=== PATIENT | female | born 1985 | race Caucasian/White ===

== ENCOUNTER 2017-04-22 17:30 | Emergency (ER) | payer MEDICAID ==
[~2017-04-22] VITALS: Ht 157.5 cm; Wt 56.8 kg
[~2017-04-22 17:30] MED LIST: LORTAB 5/500 501 TAB PO; MOTRIN 600600 MG/TAB PO; NAPROSYN500 MG PO; NEURONTIN100 MG/CAP PO; NORCO 325 MG-51 TAB PO; PERCOCET 325 MG1 TA2 PO; PRENATAL1 TA1 PO; SENOKOT S 50 MG1 TAB PO
[2017-04-22 17:32] VITALS: TEMP 97
[2017-04-22 19:20] LABS: BASO # 0.1 (0.0-0.2); BASO % 0.7 % (0.0-2.0); EOS # 0.1 (0.0-0.7); GRAN # 6.3 (1.4-6.5); GRAN % 71.6 % (42.2-75.2); HEMATOCRIT 38.8 % (37.0-47.0); LYMPH # 1.8 (1.2-3.4); LYMPH % 20.2 % (20.0-51.0); MEAN CELL VOLUME 81 fl (80.0-100.0); MEAN CORPUSCULAR HEMOGLOBIN 27 pg (27.0-31.0); MEAN CORPUSCULAR HGB CONC 34 g/dl (33.0-37.0); MEAN PLATELET VOLUME 9.2 fl (7.4-10.4); MONO # 0.6 (0.1-0.6); MONO % 6.3 % (1.7-9.3); PLATELET COUNT 292 K/mm3 (130-400); RED BLOOD COUNT 4.81 M/mm3 (4.10-5.30); REDCELL DISTRIBUTION WIDTH-CV 12.8 % (11.5-14.5); WHITE BLOOD COUNT 8.8 K/mm3 (4.8-10.8)
[2017-04-22 19:36] LABS: ADJUSTED CALCIUM 9.1 mg/dL (8.4-10.2); ALANINE AMINOTRANSFERASE 27 U/L (9-52); ALBUMIN 4.4 gm/dL (3.5-5.0); ALKALINE PHOSPHATASE 59 U/L (50-136); ANION GAP 10 mmol/L (7-16); BILIRUBIN,TOTAL 0.5 mg/dL (0.0-1.0); BLOOD UREA NITROGEN 14 mg/dL (7-17); CALCIUM 9.4 mg/dL (8.4-10.2); CARBON DIOXIDE 24 mmol/L (22-30); CHLORIDE 103 mmol/L (98-107); CREATININE, serum 0.84 mg/dL (0.52-1.25); GLUCOSE 99 mg/dL (74-106); POTASSIUM 3.9 mmol/L (3.4-5.0); SODIUM 137 mmol/L (137-145)
[2017-04-22 19:41] LABS: C-REACTIVE PROTEIN < 0.5 mg/dL (0.0-0.9)
[2017-04-22 19:56] LABS: PH 6 (5-8); SQUAMOUS EPITHELIAL None Seen /hpf; URINE APPEARANCE Cloudy; URINE BACTERIA None Seen /hpf; URINE BILIRUBIN Negative (NEGATIVE); URINE BLOOD 3+ (NEGATIVE); URINE COLOR Yellow; URINE GLUCOSE Negative (NEGATIVE); URINE KETONE Trace (NEGATIVE); URINE RBC >50 /hpf; URINE UROBILINOGEN Negative (NEGATIVE); URINE WBC 20-50 /hpf
[2017-04-22] MEDS ORDERED: PYRIDIUM 100MG100 MG PO (20:26)
[2017-04-22] MEDS ORDERED: CEFTIN500 MG PO (20:26)
[2017-04-22 22:11] VITALS: BP 117/78; PULSE 80
== END 2017-04-22 22:14 | disposition home or self-care (01) ==
LOC: COL.ER 17:30
PROVIDERS: Physician Assistant
DX: N30.91 Cystitis, unspecified with hematuria (principal); F32.9 Major depressive disorder, single episode, unspecified; F41.9 Anxiety disorder, unspecified; F43.10 Post-traumatic stress disorder, unspecified
CPT/HCPCS: J0696; J1170; J2550; J3010; J7030

== ENCOUNTER 2017-06-13 16:16 | Emergency (ER) | payer MEDICAID ==
[~2017-06-13] VITALS: Ht 160 cm; Wt 71.8 kg
[~2017-06-13 16:16] MED LIST changes: +CEFTIN500 MG PO; +PYRIDIUM 100MG100 MG PO
[2017-06-13 16:57] LABS: INFLUENZA A NEGATIVE; INFLUENZA B NEGATIVE
[2017-06-13] MEDS ORDERED: DOXYCYCLINE HY100 MG PO (17:31)
[2017-06-13 17:53] VITALS: BP 126/70; PULSE 105; TEMP 99.3
== END 2017-06-13 17:58 | disposition home or self-care (01) ==
LOC: COL.ER 16:16
PROVIDERS: Emergency Medicine
DX: J18.1 Lobar pneumonia, unspecified organism (principal)

== ENCOUNTER → 2017-07-13 | Outpatient (CLI) | payer MEDICAID ==
[~2017-07-13] MED LIST changes: +DOXYCYCLINE HY100 MG PO
== END ==
LOC: COL.RAD 09:12
DX: R05 Cough (principal)

== ENCOUNTER 2019-04-18 14:49 | Emergency (ER) | payer MEDICAID ==
[~2019-04-18] VITALS: Ht 312.4 cm; Wt 69.9 kg
[2019-04-18 14:56] VITALS: BP 126/80; TEMP 98.4
[2019-04-18] MEDS ORDERED: DOXYCYCLINE 10100 MG PO (15:52)
[2019-04-18] MEDS ORDERED: NORCO 325 MG-51 TAB PO (15:52)
[2019-04-18 16:13] VITALS: PULSE 88
== END 2019-04-18 16:13 | disposition home or self-care (01) ==
LOC: COL.ER 14:49
DX: L03.811 Cellulitis of head [any part, except face] (principal); L08.9 Local infection of the skin and subcutaneous tissue, unspecified

== ENCOUNTER 2019-11-16 09:21 | Emergency (ER) | payer MEDICAID ==
[~2019-11-16] VITALS: Ht 157.5 cm; Wt 65.9 kg
[~2019-11-16 09:21] MED LIST changes: +DOXYCYCLINE 10100 MG PO
[2019-11-16 09:27] VITALS: TEMP 98
[2019-11-16 11:27] LABS: BASO # 0.1 (0.0-0.2); BASO % 0.4 % (0.0-2.0); EOS % 0.3 % (0-4.0); GRAN # 10.3 (1.4-6.5); GRAN % 82.6 % (42.2-75.2); HEMOGLOBIN 11.1 g/dl (12.5-16.0); LYMPH % 7.9 % (20.0-51.0); MEAN CELL VOLUME 84 fl (80.0-100.0); MEAN CORPUSCULAR HEMOGLOBIN 26 pg (27.0-31.0); MEAN CORPUSCULAR HGB CONC 31 g/dl (33.0-37.0); MEAN PLATELET VOLUME 9.6 fl (7.4-10.4); MONO % 8.1 % (1.7-9.3); PLATELET COUNT 276 K/mm3 (130-400); RED BLOOD COUNT 4.25 M/mm3 (4.10-5.30); REDCELL DISTRIBUTION WIDTH-CV 13.2 % (11.5-14.5)
[2019-11-16 11:28] LABS: HEMATOCRIT 35.6 % (37.0-47.0)
[2019-11-16 11:45] LABS: ALBUMIN 3.9 gm/dL (3.5-5.0); BILIRUBIN,TOTAL 0.3 mg/dL (0.0-1.0); CALCIUM 9.1 mg/dL (8.4-10.2); CREATININE, serum 0.62 (0.52-1.25); POTASSIUM 3.9 mmol/L (3.4-5.0); TOTAL PROTEIN 7.7 gm/dL (6.4-8.2)
[2019-11-16 11:57] LABS: C-REACTIVE PROTEIN 18.3 mg/dL (0.0-0.9)
[2019-11-16] MEDS ORDERED: FLEXERIL 1010 MG/TAB PO (13:18)
[2019-11-16] MEDS ORDERED: IBU800 M1 PO (13:18)
[2019-11-16] MEDS ORDERED: AMOXICILLIN 8751 TAB PO (13:18)
[2019-11-16 13:32] VITALS: BP 114/65; PULSE 73
== END 2019-11-16 13:34 | disposition home or self-care (01) ==
LOC: COL.ER 09:21
PROVIDERS: Physician Assistant
DX: R07.89 Other chest pain (principal); M25.511 Pain in right shoulder
CPT/HCPCS: J1170; J1885; J2060; J2360; Q9967

== ENCOUNTER 2019-11-20 16:44 | Inpatient (IN) | payer MEDICAID ==
[~2019-11-20] VITALS: Ht 157.5 cm; Wt 75.2 kg
[~2019-11-20 16:44] MED LIST changes: +AMOXICILLIN 8751 TAB PO; +FLEXERIL 1010 MG/TAB PO; +IBU800 M1 PO
[2019-11-20 17:27] VITALS: BP 118/66; PULSE 131; TEMP 100.4
[2019-11-20 19:26] LABS: BASO # 0.1 (0.0-0.2); BASO % 0.4 % (0.0-2.0); EOS % 0.3 % (0-4.0); GRAN # 9.9 (1.4-6.5); GRAN % 83.8 % (42.2-75.2); HEMOGLOBIN 10.2 g/dl (12.5-16.0); LYMPH # 0.8 (1.2-3.4); MEAN CELL VOLUME 80 fl (80.0-100.0); MEAN CORPUSCULAR HEMOGLOBIN 26 pg (27.0-31.0); MEAN CORPUSCULAR HGB CONC 33 g/dl (33.0-37.0); MEAN PLATELET VOLUME 8.9 fl (7.4-10.4); MONO # 0.9 (0.1-0.6); MONO % 7.7 % (1.7-9.3); PLATELET COUNT 336 K/mm3 (130-400); RED BLOOD COUNT 3.93 M/mm3 (4.10-5.30); REDCELL DISTRIBUTION WIDTH-CV 13.5 % (11.5-14.5)
[2019-11-20 19:27] LABS: HEMATOCRIT 31.3 % (37.0-47.0)
[2019-11-20 19:28] LABS: INR 1.1 (0.8-3.0); PROTHROMBIN TIME 12.4 SECONDS (9.7-12.8)
[2019-11-20 19:41] LABS: ANION GAP 9 mmol/L (7-16); BLOOD UREA NITROGEN 12 mg/dL (7-17); CALCIUM 8.5 mg/dL (8.4-10.2); CARBON DIOXIDE 28 mmol/L (22-30); CHLORIDE 98 mmol/L (98-107); CREATININE, serum 0.64 (0.52-1.25); GLUCOSE 125 mg/dL (74-106); POTASSIUM 3.7 mmol/L (3.4-5.0); SODIUM 134 mmol/L (137-145)
[2019-11-20 19:49] LABS: SALICYLATE < 1.0 mg/dL
[2019-11-20 19:53] VITALS: BP 125/68; PULSE 115; TEMP 101.1
[2019-11-20 19:54] LABS: TROPONIN-I < 0.012 ng/mL (0.000-0.035)
[2019-11-20] MEDS ORDERED: PREDNISONE20 MG PO (22:12)
[2019-11-20 23:45] VITALS: BP 100/58; PULSE 89; TEMP 98.6
[2019-11-21 06:05] LABS: BASO % 0.4 % (0.0-2.0); EOS # 0.1 (0.0-0.7); EOS % 0.7 % (0-4.0); GRAN # 8.5 (1.4-6.5); GRAN % 83.4 % (42.2-75.2); HEMATOCRIT 31.8 % (37.0-47.0); LYMPH # 0.9 (1.2-3.4); LYMPH % 8.5 % (20.0-51.0); MEAN CELL VOLUME 84 fl (80.0-100.0); MEAN CORPUSCULAR HEMOGLOBIN 26 pg (27.0-31.0); MEAN CORPUSCULAR HGB CONC 31 g/dl (33.0-37.0); MEAN PLATELET VOLUME 9.1 fl (7.4-10.4); MONO # 0.6 (0.1-0.6); MONO % 5.8 % (1.7-9.3); PLATELET COUNT 292 K/mm3 (130-400); RED BLOOD COUNT 3.81 M/mm3 (4.10-5.30); REDCELL DISTRIBUTION WIDTH-CV 14.1 % (11.5-14.5)
[2019-11-21 06:17] LABS: ALBUMIN 3.3 gm/dL (3.5-5.0); BILIRUBIN,TOTAL 0.4 mg/dL (0.0-1.0); CREATININE, serum 0.72 (0.52-1.25); POTASSIUM 3.7 mmol/L (3.4-5.0); TOTAL PROTEIN 6.8 gm/dL (6.4-8.2)
[2019-11-21 06:18] LABS: INR 1.2 (0.8-3.0); PROTHROMBIN TIME 14.2 SECONDS (9.7-12.8)
[2019-11-21 07:45] VITALS: BP 124/68; PULSE 101; TEMP 97.7
[2019-11-21 13:38] VITALS: BP 122/79; PULSE 110; TEMP 99.4
== END 2019-11-21 14:10 | disposition short-term general hospital (02) | DRG 871 ==
LOC: MEDICAL 16:44
PROVIDERS: Nurse Practitioner Family; ADMIT Student in an Organized Health Care Education/Training Program
DX: A41.02 Sepsis due to Methicillin resistant Staphylococcus aureus (principal); G06.2 Extradural and subdural abscess, unspecified; J85.2 Abscess of lung without pneumonia; J90 Pleural effusion, not elsewhere classified; J98.11 Atelectasis; R07.89 Other chest pain; R73.9 Hyperglycemia, unspecified; T38.0X5A Adverse effect of glucocorticoids and synthetic analogues, initial encounter; R91.1 Solitary pulmonary nodule; D64.9 Anemia, unspecified; M54.10 Radiculopathy, site unspecified; Z87.01 Personal history of pneumonia (recurrent); Z87.440 Personal history of urinary (tract) infections
CPT/HCPCS: OP; 99223-AI; 99239; A9284; A9585; J1170; J1650; J1956; J2270; J2543; J3370; J7030; J7050; Q9967

== ENCOUNTER 2019-12-24 19:04 | Emergency (ER) | payer MEDICAID ==
[~2019-12-24] VITALS: Ht 157.5 cm; Wt 71.8 kg
[~2019-12-24 19:04] MED LIST changes: +PREDNISONE20 MG PO
[2019-12-24 19:12] VITALS: BP 120/80; TEMP 99
[2019-12-24 20:22] LABS: BASO # 0.1 (0.0-0.2); BASO % 1.2 % (0.0-2.0); EOS # 0.2 (0.0-0.7); EOS % 2.7 % (0-4.0); GRAN # 4.6 (1.4-6.5); GRAN % 60.8 % (42.2-75.2); HEMOGLOBIN 11.2 g/dl (12.5-16.0); LYMPH # 2.1 (1.2-3.4); LYMPH % 27.6 % (20.0-51.0); MEAN CELL VOLUME 83 fl (80.0-100.0); MEAN CORPUSCULAR HEMOGLOBIN 26 pg (27.0-31.0); MEAN CORPUSCULAR HGB CONC 31 g/dl (33.0-37.0); MEAN PLATELET VOLUME 8.5 fl (7.4-10.4); MONO # 0.6 (0.1-0.6); MONO % 7.4 % (1.7-9.3); PLATELET COUNT 294 K/mm3 (130-400); RED BLOOD COUNT 4.33 M/mm3 (4.10-5.30); REDCELL DISTRIBUTION WIDTH-CV 15.2 % (11.5-14.5)
[2019-12-24 20:27] LABS: HEMATOCRIT 36.1 % (37.0-47.0)
[2019-12-24 20:47] LABS: ALANINE AMINOTRANSFERASE 40 U/L (4-34); ALBUMIN 4.2 gm/dL (3.5-5.0); ALKALINE PHOSPHATASE 71 U/L (50-136); ANION GAP 9 mmol/L (7-16); AST,SGOT 36 U/L (15-37); BILIRUBIN,TOTAL 0.3 mg/dL (0.0-1.0); BLOOD UREA NITROGEN 13 mg/dL (7-17); C-REACTIVE PROTEIN < 0.5 mg/dL (0.0-0.9); CALCIUM 9.4 mg/dL (8.4-10.2); CARBON DIOXIDE 25 mmol/L (22-30); CHLORIDE 105 mmol/L (98-107); CREATININE, serum 0.79 (0.52-1.25); GLUCOSE 105 mg/dL (74-106); SODIUM 139 mmol/L (137-145); TOTAL PROTEIN 8.4 gm/dL (6.4-8.2)
[2019-12-24] MEDS ORDERED: NEURONTIN100 MG/CAP PO (20:49)
[2019-12-24 20:50] LABS: ERYTHROCYTE SEDIMENTATION RATE 24 mm/hr (0-20)
[2019-12-24] MEDS ORDERED: LIORESAL 1010 MG/TAB PO (20:50)
[2019-12-24] MEDS ORDERED: ULTRAM 50MG TAB50 MG PO (20:51)
[2019-12-24] MEDS ORDERED: ROBAXIN 75750 MG/TAB PO (20:52)
[2019-12-24] MEDS ORDERED: ZOFRAN 4MG T4 MG/TAB PO (20:52)
[2019-12-24] MEDS ORDERED: ZYVOX 600MG600 MG PO (20:54)
[2019-12-24] MEDS ORDERED: DULCOLAX STOOL100 MG PO (20:54)
[2019-12-24] MEDS ORDERED: FLEXERIL 1010 MG/TAB PO (20:55)
[2019-12-24] MEDS ORDERED: PREDNISONE10 MG PO (20:55)
[2019-12-24] MEDS ORDERED: IBU800 M1 PO (20:56)
[2019-12-24] MEDS ORDERED: AMOXICILLIN875 MG PO (20:57)
[2019-12-24] MEDS ORDERED: PERCOCET 325 MG1 TAB PO (21:59)
[2019-12-24 23:00] VITALS: PULSE 87
== END 2019-12-24 23:00 | disposition home or self-care (01) ==
LOC: COL.ER 19:04
PROVIDERS: Emergency Medicine
DX: T81.89XA Other complications of procedures, not elsewhere classified, initial encounter (principal); J85.2 Abscess of lung without pneumonia; Z97.8 Presence of other specified devices
CPT/HCPCS: J2405; J3010; J7030; Q9967

== ENCOUNTER 2020-03-20 17:34 | Emergency (ER) | payer MEDICAID ==
[~2020-03-20] VITALS: Ht 154.9 cm; Wt 72.7 kg
[~2020-03-20 17:34] MED LIST changes: +AMOXICILLIN875 MG PO; +DULCOLAX STOOL100 MG PO; +LIORESAL 1010 MG/TAB PO; +PERCOCET 325 MG1 TAB PO; +PREDNISONE10 MG PO; +ROBAXIN 75750 MG/TAB PO; +ULTRAM 50MG TAB50 MG PO; +ZOFRAN 4MG T4 MG/TAB PO; +ZYVOX 600MG600 MG PO
[2020-03-20 17:46] VITALS: TEMP 99
[2020-03-20 18:34] LABS: BASO % 0.4 % (0.0-2.0); EOS # 0.1 (0.0-0.7); EOS % 1.4 % (0-4.0); GRAN # 5.7 (1.4-6.5); GRAN % 66.9 % (42.2-75.2); HEMATOCRIT 37.3 % (37.0-47.0); HEMOGLOBIN 11.7 g/dl (12.5-16.0); LYMPH # 2.1 (1.2-3.4); LYMPH % 24.1 % (20.0-51.0); MEAN CELL VOLUME 82 fl (80.0-100.0); MEAN CORPUSCULAR HEMOGLOBIN 26 pg (27.0-31.0); MEAN CORPUSCULAR HGB CONC 31 g/dl (33.0-37.0); MEAN PLATELET VOLUME 9.3 fl (7.4-10.4); MONO # 0.6 (0.1-0.6); PLATELET COUNT 281 K/mm3 (130-400); RED BLOOD COUNT 4.55 M/mm3 (4.10-5.30); REDCELL DISTRIBUTION WIDTH-CV 14.6 % (11.5-14.5)
[2020-03-20 18:49] LABS: ALBUMIN 4.2 gm/dL (3.5-5.0); BILIRUBIN,TOTAL 0.3 mg/dL (0.0-1.0); C-REACTIVE PROTEIN 4.6 mg/dL (0.0-0.9); CALCIUM 9.2 mg/dL (8.4-10.2); CREATININE, serum 0.82 (0.52-1.25); POTASSIUM 4.2 mmol/L (3.4-5.0); TOTAL PROTEIN 8.1 gm/dL (6.4-8.2)
[2020-03-20] MEDS ORDERED: CEPHALEXIN500 M1 PO (21:32)
[2020-03-20] MEDS ORDERED: BACTRIM DS 8001 TAB PO (21:32)
[2020-03-20] MEDS ORDERED: NORCO 325 MG-51 TAB PO (21:36)
[2020-03-20 22:11] VITALS: BP 126/83; PULSE 83
== END 2020-03-20 22:11 | disposition home or self-care (01) ==
LOC: COL.ER 17:34
PROVIDERS: Nurse Practitioner
DX: L02.11 Cutaneous abscess of neck (principal); Z79.52 Long term (current) use of systemic steroids
CPT/HCPCS: J1170; J7030

== ENCOUNTER 2020-03-23 16:51 | Emergency (ER) | payer MEDICAID ==
[~2020-03-23] VITALS: Ht 154.9 cm; Wt 72.7 kg
[~2020-03-23 16:51] MED LIST changes: +BACTRIM DS 8001 TAB PO; +CEPHALEXIN500 M1 PO
[2020-03-23 17:07] VITALS: TEMP 98.4
[2020-03-23 19:25] VITALS: BP 110/61; PULSE 79
== END 2020-03-23 19:26 | disposition home or self-care (01) ==
LOC: COL.ER 16:51
DX: L02.91 Cutaneous abscess, unspecified (principal); Z79.52 Long term (current) use of systemic steroids
CPT/HCPCS: J3010

== ENCOUNTER → 2020-08-08 | Outpatient (CLI) | payer MEDICAID | LOC: COL.RAD 12:33 | DX: R91.1 Solitary pulmonary nodule (principal) ==

== ENCOUNTER → 2020-12-16 | Outpatient (CLI) | payer MEDICAID | LOC: COL.RAD 15:41 | DX: Z96.89 Presence of other specified functional implants (principal); G06.2 Extradural and subdural abscess, unspecified ==

== ENCOUNTER → 2023-09-21 | Outpatient (CLI) | payer MEDICAID ==
[~2023-09-21] MED LIST changes: +BENTYL 20MG20 MG/TAB PO; +REGLAN 10MG10 MG/TAB PO
== END ==
LOC: COL.RAD 10:09
DX: R14.0 Abdominal distension (gaseous) (principal); R10.84 Generalized abdominal pain; R19.5 Other fecal abnormalities; R11.10 Vomiting, unspecified